=== PATIENT | female | born 1990 | race Caucasian/White ===

== ENCOUNTER 2016-12-24 12:03 | Outpatient (CLI) | payer MEDICAID ==
[~2016-12-24] VITALS: Ht 167.6 cm; Wt 88.9 kg
== END 2016-12-24 12:28 ==
LOC: PREOP 12:03
PROVIDERS: ATTEND Surgery
DX: Z01.818 Encounter for other preprocedural examination (principal); K80.20 Calculus of gallbladder without cholecystitis without obstruction

== ENCOUNTER 2016-12-28 09:58 | Day surgery (SDC) | payer MEDICAID ==
[~2016-12-28] VITALS: Ht 167.6 cm; Wt 88.9 kg
[2016-12-28 10:30] VITALS: BP 114/69
[2016-12-28] MEDS ORDERED: metroNIDAZOLE 500MG/100ML IVPB 100 ML ONE (10:34)
[2016-12-28] MEDS ORDERED: CATHETER FLUSH 10 ML SYR IV PRN (10:45)
[2016-12-28] MEDS ORDERED: metroNIDAZOLE 500 MG/100 ML IVPB (PRE-MIX) IV ONE (10:45)
[2016-12-28] MEDS ORDERED: ceFAZolin 2 GM/NS 50 ML IV ONE (11:00)
[2016-12-28] MEDS: LACTATED RINGERS 1,000 ML IV PRN ×2 (11:31→14:20)
[2016-12-28] MEDS ORDERED: BUP/EPI 0.5% 1:200,000 (MARCAINE) 10ML VIAL IJ ONE ×2 (13:28→14:39)
[2016-12-28] MEDS ORDERED: HYDR-3820 PO (13:48)
[2016-12-28] MEDS ORDERED: ONDANSETRON 4 MG/2 ML (SDV) Z0FRAN ONE ×2 (15:01→15:25)
[2016-12-28] MEDS ORDERED: morphine INJ 10 MG/ML 1ML (SYR OR VIAL) ONE (15:02)
[2016-12-28] MEDS: ONDANSETRON 4 MG/2 ML (SDV) Z0FRAN IVP PRN ×2 (15:11→15:35)
[2016-12-28] MEDS: morphine INJ 10 MG/ML 1ML (SYR OR VIAL) IVP PRN ×2 (15:12→15:18)
[2016-12-28] MEDS ORDERED: fentaNYL INJECTION 100 MCG/2 ML AMP ONE (15:25)
[2016-12-28] MEDS ORDERED: fentaNYL INJECTION 100 MCG/2 ML AMP IVP PRN (15:45)
[2016-12-28 16:00] VITALS: BP 124/71
[2016-12-28 16:30] VITALS: BP 133/71
[2016-12-28 17:00] VITALS: BP 118/66
== END 2016-12-28 17:35 | disposition home or self-care (01) ==
LOC: SDC 09:58
PROVIDERS: ATTEND Surgery
DX: K80.10 Calculus of gallbladder with chronic cholecystitis without obstruction (principal); F17.210 Nicotine dependence, cigarettes, uncomplicated
CPT/HCPCS: 84703; 87081; 94664